=== PATIENT | male | born 1955 | race Caucasian/White ===

== ENCOUNTER 2023-03-19 06:30 | Day surgery (SDC) | payer OTHER ==
[2023-03-14 11:37] LABS: Absolute Lymphocytes (CBC) 1.1 K/uL (0.7-4.9); Hematocrit 42.8 % (39.6-49.0); Lymphocytes % 16.7 % (15.3-44.8); MCV 96.8 fL (80-100); MPV 7.9 fL (7.6-11.3); RBC Red Blood Cell Count 4.41 M/uL (4.33-5.43)
[2023-03-14 11:43] LABS: Protime INR 0.81
--- NOTE | 2023-03-14 12:07 | RAD REPORT ---
EXAM DESCRIPTION: Micah Alva And Brittany (2 Views)03/14/2023 11:28 am CLINICAL HISTORY: Preop for cardiac catheterization. Hypertension COMPARISON: None FINDINGS: The lungs appear clear of acute infiltrate. The heart is normal size IMPRESSION: No acute abnormalities displayed
[2023-03-14 12:36] LABS: Potassium 3.9 mEq/L (3.5-5.1)
--- NOTE | 2023-03-14 15:12 | EKG ---
Test Date: 2023-03-14 Test Time: 11:15:58 Drawer Upfitter: LYNDSAY MEASUREMENT RESULTS: Intervals: Rate: 76 ME: 166 QRSD: 98 QT: 424 QTc: 477 Reliance: P: 10 ME: 166 QRS: -12 T: 49 INTERPRETIVE STATEMENTS: Normal sinus rhythm Normal ECG No previous ECG available for comparison Electronically Signed On 03-14-23 15:11:27 CDT by Richard Salcido
[2023-03-19] MEDS ORDERED: LIDOCAINE 1% 20 ML MDV ONE (06:48)
[2023-03-19] MEDS ORDERED: HEPA 1000U/500MLS 2,000 UNIT/1,000 ML BAG IV ONE (06:48)
[2023-03-19] MEDS ORDERED: FENTANYL CITR 100 MCG/2 ML ONE (06:48)
[2023-03-19] MEDS ORDERED: MIDAZOLAM HCL 2 MG/2 ML INJ ONE (06:49)
[2023-03-19] MEDS ORDERED: ATROPINE SULF 1 MG/10 ML SYR IV ONE (06:49)
[2023-03-19] MEDS ORDERED: NA CHLORIDE 0.9% 500 ML ONE (07:00)
--- NOTE | 2023-03-19 09:55 | OP ---
Date of Procedure: 03/19/2023 Surgeon: IVONE FERMIN Procedure Performed: Bilateral carotid angiogram. Indication: Carotid stenosis by Doppler. Access: Right femoral artery 4-Mauritian closed with manual pressure. Complications: None. Bleeding: Less than 20 mL. Anesthesia: Total sedation time was 30 minutes. Used fentanyl and Versed. Description Of Procedure: After risks, benefits, and alternatives were explained, the patient agreed to procedure and signed informed consent. The patient was brought into the cardiac catheterization laboratory, prepped and draped in the usual sterile fashion. Then, I accessed the right femoral aviva ry using a micropuncture kit, ultrasound guidance and fluoroscopy, and placed a 4-Mauritian [place] she ath and took a 4-Mauritian 3DRC catheter into the aortic root and then I engaged the right common caroti d artery, took standard views and then the left common carotid and took standard views, and then cecilia dionna the catheter and sheath and manual pressure was used for closure with good hemostasis. Total amount of contrast use was 14 cc. Findings: 1.Right common carotid artery appears normal. In the distal portion, there was 50% stenosis, extend s into the right internal carotid artery. 2.Left common carotid artery distally is 50% to 60% and left internal carotid artery is 60% stenosed , the left external carotid artery has 50% stenosis ostially. Conclusion: Moderate bilateral carotid stenosis. Plan: Medical management. /GIACOMOL Voice ID: [id number] Report ID: [id number]
[2023-03-19 10:01] VITALS: TEMP 97.4
[2023-03-19 11:07] VITALS: BP 157/84; O2SAT 98
== END 2023-03-19 11:16 | disposition home or self-care (01) ==
LOC: CCL 06:30
PROVIDERS: ATTEND Internal Medicine
DX: I65.23 Occlusion and stenosis of bilateral carotid arteries (principal)
CPT/HCPCS: 93005; 85025; 80048; 36415; 85610; 82947; 85730; 71046; 36222; C1893; J2001; J2250; J3010; J7040; J0461

== ENCOUNTER 2025-02-22 14:15 | Emergency (ER) | payer OTHER ==
--- NOTE | 2025-02-22 15:56 | RAD REPORT ---
EXAMINATION: Ankle Right 3 View VIEWS: As above CLINICAL INDICATION: Male, 70 years old. hardware sticking out COMPARISON: No prior exam. IMPRESSION: Question age-indeterminate fracture at the base of the fifth metatarsal on the lateral view. Could co nsider dedicated right foot radiograph. Otherwise, no acute fracture seen. Status post distal tibial ORIF with threaded screws and medial plate and screw. Notable soft tissue s welling is present along the medial aspect of the distal tibial metaphysis. This is of uncertain etiology. Underlying vascular clips are present. The hardware appears intact. Peripheral vascular calcifications are noted. Moderate to advanced degenerative changes are present a t the ankle joint. Calcaneal spurs present.
--- NOTE | 2025-02-22 18:16 | RAD REPORT ---
EXAM: Foot Right 3 View HISTORY: PAIN COMPARISON: None FINDINGS: Bones: Lucency through the base of the fifth metatarsal likely reflects a remote, healed fracture. No acute fracture. Alignment:No significant malalignment. Degenerative changes:Advanced degenerative changes are present at the first MTP joint. Calcaneal spur s. Other: Surgical changes at the ankle. Peripheral vascular calcifications. IMPRESSION: No acute right foot fracture. Deformity at the fifth metatarsal likely reflecting a remote healed fra cture.
--- NOTE | 2025-02-22 18:34 | EDPHYS ---
Physician Documentation [facility] Name: Boris Najera Age: 70 yrs Sex: Male : 1955 Arrival Date: 02/22/2025 Time: 14:15 Bed 21 Private MD: ED Physician Lee Ann Rocha HPI: 02/22 17:58 This 70 yrs old Male presents to ER via Ambulatory with complaints of right ankle metal ci sticking out. 17:58 Patient is a 70-year-old male with PMH diabetes, hypertension, CVA, hyperlipidemia who ci presents with right ankle metallic foreign body sticking out of his ankle. Patient has a history of compound fracture with multiple ankle fractures 14 years ago. Reports he noticed the pain was taken out. Denies any pain, no recent trauma, no fever. Patient has been ambulatory with a steady gait.. Historical: - Allergies: 15:17 No Known Allergies; cm10 - PMHx: 15:17 diabetes mellitus; Hypertensive disorder; Cerebrovascular accident; cm10 Hypercholesterolemia; - Immunization history:: Adult Immunizations up to date. - Infectious Disease History:: Denies. - Social history:: Smoking status: Patient denies any tobacco usage or history of. ROS: 17:58 Constitutional: Negative for fever, chills, and weight loss, Cardiovascular: Negative ci for chest pain, palpitations, and edema, Respiratory: Negative for shortness of breath, cough, wheezing, and pleuritic chest pain, 17:58 MS/extremity: Positive for Foreign body, Exam: 17:58 Constitutional: This is a well developed, well nourished patient who is awake, alert, ci and in no acute distress. Head/Face: Normocephalic, atraumatic. Cardiovascular: Regular rate and rhythm with a normal S1 and S2. No gallops, murmurs, or rubs. Normal PMI, no JVD. No pulse deficits. Respiratory: Lungs have equal breath sounds bilaterally, clear to auscultation and percussion. No rales, rhonchi or wheezes noted. No increased work of breathing, no retractions or nasal flaring. Abdomen/GI: Soft, non-tender, with normal bowel sounds. No distension or tympany. No guarding or rebound. No evidence of tenderness throughout. 17:58 Musculoskeletal/extremity: Circulation is intact in all extremities. Pulses: are normal with no appreciated deficits, Compartment Syndrome exam of affected extremity: is normal. no pain, no numbness, no tingling, no sensation deficit, no palor, no weak pulses, DVT Exam: No signs of deep vein thrombosis. no pain, no swelling, no tenderness, negative Homans' sign noted on exam, no appreciated bluish discoloration, no erythema, no increased warmth, Right ankle swelling along medial malleolus. Patient does have a metallic pain sticking out. DP/PT 2+, sensation to light touch is intact. No tenderness to palpation.. Vital Signs: 15:15 BP 131 / 63; Pulse 85; Resp 18; Temp 98.8; Pulse Ox 99% on R/A; Weight 83.91 kg; Height cm10 5 ft. 10 in. ; Pain 0/10; 15:15 Body Mass Index 26.54 (83.91 kg, 177.8 cm) cm10 15:15 Pain Scale: Adult cm10 MDM: 15:29 Medical Screening Exam initiated ci 17:58 Differential Diagnosis Fracture, dislocation, sprain/strain, contusion. Data reviewed: ci vital signs, nurses notes. ED course: Orthopedic surgery consulted, Dr. Ashley will see in office. Radiology arrives for right foot x-ray, x-ray pending at this time.. 18:18 ED course: XR foot shows healed fx. ci 02/22 15:18 Order name: Ankle Right 3 View XRAY; Complete Time: 16:24 cm10 02/22 17:57 Interpretation: Abnormal: questionable fifth metatarsal fx, recs for foot XR. ci 02/22 16:25 Order name: Foot Right 3 View XRAY; Complete Time: 18:17 ci Administered Medications: No medications were administered Disposition Summary: 02/22/25 18:33 Discharge Ordered Notes: Location: Home ci Condition: Stable ci Diagnosis - Sprain of unspecified ligament of right ankle, initial encounter - Hardware ci Protrusion Discharge Instructions: - Discharge Summary Sheet ci - Ankle Sprain, [id number] ci Forms: - Medication Reconciliation Form ci - Antibiotic Education ci - Prescription Opioid Use ci - Patient Portal Instructions ci - Leadership Thank You Letter ci Signatures: Dispatcher [employer] Yasemin Dougherty RN RN cm10 Lee Ann Rocha ci Corrections: (The following items were deleted from the chart) 15:18 15:18 Ankle Right 3 View+RAD.RAD.BRZ ordered. EDMS EDMS
--- NOTE | 2025-02-22 18:34 | ER ---
Nurse's Notes [facility] Name: Boris Najera Age: 70 yrs Sex: Male : 1955 Arrival Date: 02/22/2025 Time: 14:15 Bed 21 Private MD: Diagnosis: Sprain of unspecified ligament of right ankle, initial encounter-Hardware Protrusion Presentation: 02/22 15:15 Chief complaint: Patient states: had hardware in right ankle from surgery 14 years ago cm10 and today pt noticed some hardware that was starting to stick out. Coronavirus screen: Client denies travel out of the [place] in the last 14 days. Ebola Screen: Patient denies travel to an Ebola-affected area in the 21 days before illness onset. Initial Sepsis Screen: Does the patient meet any 2 criteria? No. Patient's initial sepsis screen is negative. Does the patient have a suspected source of infection? No. Patient's initial sepsis screen is negative. Risk Assessment: Do you want to hurt yourself or someone else? Patient reports no desire to harm self or others. Onset of symptoms was February 22, 2025. 15:15 Method Of Arrival: Ambulatory cm10 15:15 Acuity: LEWIS 4 cm10 Triage Assessment: 15:17 General: Appears comfortable, Behavior is calm, cooperative. Pain: Denies pain. Neuro: cm10 No deficits noted. Level of Consciousness is awake, alert, obeys commands, Oriented to person, place, time, situation, Appropriate for age. Respiratory: No deficits noted. Airway is patent Respiratory effort is even, unlabored, Respiratory pattern is regular, symmetrical. Historical: - Allergies: 15:17 No Known Allergies; cm10 - PMHx: 15:17 diabetes mellitus; Hypertensive disorder; Cerebrovascular accident; cm10 Hypercholesterolemia; - Immunization history:: Adult Immunizations up to date. - Infectious Disease History:: Denies. - Social history:: Smoking status: Patient denies any tobacco usage or history of. Assessment: 18:45 Reassessment: At discharge pt requested to have films, informed pt that we can give him jl7 a CD to take to the radiologist, pt refused. Vital Signs: 15:15 BP 131 / 63; Pulse 85; Resp 18; Temp 98.8; Pulse Ox 99% on R/A; Weight 83.91 kg; Height cm10 5 ft. 10 in. ; Pain 0/10; 15:15 Body Mass Index 26.54 (83.91 kg, 177.8 cm) cm10 15:15 Pain Scale: Adult cm10 ED Course: 14:17 Patient arrived in ED. im 15:16 Triage completed. cm10 15:17 Arm band placed on right wrist. Patient placed in waiting room. cm10 15:29 Lee Ann Rocha is Attending Physician. ci 15:48 Ankle Right 3 View XRAY In Process Unspecified. EDMS 17:48 Foot Right 3 View XRAY In Process Unspecified. EDMS 18:45 Patient has correct armband on for positive identification. jl7 18:45 No provider procedures requiring assistance completed. Patient did not have IV access jl7 during this emergency room visit. Administered Medications: No medications were administered Medication: 18:45 VIS not applicable for this client. jl7 Outcome: 18:33 Discharge ordered by MD. ci 18:45 Discharged to home ambulatory, jl7 18:45 Condition: stable 18:45 Discharge instructions given to patient, Instructed on discharge instructions, follow up and referral plans. Demonstrated understanding of instructions, follow-up care, 19:27 Patient left the ED. jl7 Signatures: Dispatcher [employer] Baltazar Montalvo RN RN jl7 Bella Lyles Clarissa, RN RN 10 Lee Ann Rocha ci
[2025-02-22 19:35] VITALS: BP 131/63; TEMP 98.8; O2SAT 99
== END 2025-02-22 19:27 | disposition home or self-care (01) ==
LOC: ER 14:15
DX: S93.401A Sprain of unspecified ligament of right ankle, initial encounter (principal); Z98.890 Other specified postprocedural states
CPT/HCPCS: 99282

== ENCOUNTER 2025-08-21 16:04 | Observation (INO) | payer OTHER ==
[2025-08-21 16:41] LABS: Absolute Lymphocytes (CBC) 0.9 K/uL (0.7-4.9); Hematocrit 43.2 % (39.6-49.0); Hemoglobin 14.3 g/dL (13.6-17.9); MCH 34.6 pg (27.0-35.0); MCHC 33.2 g/dL (32.0-36.0); MCV 104.3 fL (80-100); MPV 7.8 fL (7.6-11.3); Nucleated RBC Absolute Count 0.0 (0-0); Nucleated Red Blood Cells % 0.0 % (0-0); RBC Red Blood Cell Count 4.14 M/uL (4.33-5.43); White Blood Count 10.90 thou/uL (4.3-10.9)
[2025-08-21 16:42] LABS: PT Prothrombin Time 9.6 SECONDS (10-13.0); Protime INR 0.85
[2025-08-21 16:53] LABS: ALT/SGPT 59.0 U/L (16-61); AST/SGOT 51.0 U/L (15-37); Albumin 3.2 g/dL (3.4-5.0); Albumin/Globulin Ratio 0.8 (1.1-1.8); Alkaline Phosphatase 77.0 U/L (45-117); Anion Gap 24.0 mEq/L (5.0-15.0); BUN Blood Urea Nitrogen 28.0 mg/dL (7-18); Bilirubin Indirect, Calculated 0.6 mg/dL (0.2-0.8); Globulin 3.8 g/dL (2.3-3.5); Glucose Level 156.0 mg/dL (74-106); Magnesium 2.1 mg/dL (1.6-2.4); NT PRO-BNP 5002.0 pg/mL (<125); Potassium 4.0 mEq/L (3.5-5.1)
[2025-08-21 16:54] LABS: Troponin High Sensitivity 65.1 pg/mL (<58.9)
[2025-08-21] MEDS ORDERED: NITROGLYCERIN 0.4 MG/TAB SL ONE ×2 (17:05→17:07)
[2025-08-21] MEDS ORDERED: ASPIRIN 81 MG CHEWABLE TABLET ONE (17:05)
--- NOTE | 2025-08-21 17:07 | ER ---
Nurse's Notes [facility] Name: Boris Najera Age: 70 yrs Sex: Male : 1955 Arrival Date: 08/21/2025 Time: 16:04 Bed [id number] Private MD: Diagnosis: Chest pain, acute kidney injury, NSTEMI Presentation: 08/21 16:28 Chief complaint: Patient states: reports having chest pain since 2200 last night. nh2 Coronavirus screen: At this time, the client does not indicate any symptoms associated with coronavirus-19. Ebola Screen: Patient denies travel to an Ebola-affected area in the 21 days before illness onset. No symptoms or risks identified at this time. Initial Sepsis Screen: Does the patient meet any 2 criteria? No. Patient's initial sepsis screen is negative. Does the patient have a suspected source of infection? No. Patient's initial sepsis screen is negative. Risk Assessment: Do you want to hurt yourself or someone else? Patient reports no desire to harm self or others. Onset of symptoms was August 20, 2025. 16:28 Method Of Arrival: Ambulatory [facility] 16:28 Acuity: LEWIS 3 nh2 Triage Assessment: 16:20 General: Appears distressed, uncomfortable, Behavior is cooperative, appropriate for nh2 age, anxious. Pain: Complains of pain in chest Pain does not radiate. Pain currently is 4 out of 10 on a pain scale. Quality of pain is described as sharp, Pain began 1 day ago. Is intermittent, Aggravated by increased activity. Neuro: Level of Consciousness is awake, alert, obeys commands, Oriented to person, place, time, situation, Appropriate for age Denies dizziness, headache. Cardiovascular: Denies chest pain, Patient's skin is warm and dry. Rhythm is sinus rhythm. Respiratory: Reports shortness of breath on exertion Airway is patent Trachea midline Respiratory effort is even, unlabored, Respiratory pattern is regular, symmetrical. GI: Abdomen is round non-distended, Bowel sounds present X 4 quads. Abd is soft and non tender X 4 quads. Reports indigestion, nausea, vomiting. : No signs and/or symptoms were reported regarding the genitourinary system. Denies burning with urination. Derm: Skin is intact, Skin is pink, warm \T\ dry. Musculoskeletal: Range of motion: intact in all extremities. Historical: - Allergies: 16:29 No Known Allergies; nh2 - PMHx: 16:29 Cerebrovascular accident; diabetes mellitus; Hypercholesterolemia; Hypertensive nh2 disorder; - PSHx: 16:29 Skin grafting; Carotid Surgery (en); nh2 - Immunization history:: Adult Immunizations unknown. - Infectious Disease History:: Denies. - Social history:: Smoking status: unknown. Screenin:32 [facility] ED Fall Risk Assessment (Adult) History of falling in the last 3 months, nh2 including since admission No falls in past 3 months (0 pts) Confusion or Disorientation No (0 pts) Intoxicated or Sedated No (0 pts) Impaired Gait No (0 pts) Mobility Assist Device Used No (0 pt) Altered Elimination No (0 pt) Score/Fall Risk Level 0 - 2 = Low Risk Oriented to surroundings, Maintained a safe environment, Educated pt \T\ family on fall prevention, incl call for assistance when getting out of bed, Assessed \T\ reinforced patient's understanding of fall precautions. Abuse screen: Denies threats or abuse. Denies injuries from another. Nutritional screening: No deficits noted. Tuberculosis screening: No symptoms or risk factors identified. Assessment: 16:32 Reassessment: see triage. nh2 17:30 Reassessment: Patient and/or family updated on plan of care and expected duration. Pain nh2 level reassessed. Patient is alert, oriented x 3, equal unlabored respirations, skin warm/dry/pink. Patient states feeling better. Vital Signs: 16:28 BP 185 / 71; Pulse 90; Resp 19; Temp 98.6(O); Pulse Ox 100% ; Weight 82.1 kg; Height 5 nh2 ft. 10 in. ; 16:58 BP 182 / 70; Pulse 82; Resp 18; Pulse Ox 100% on R/A; nh2 17:30 BP 168 / 66; Pulse 78; Resp 19; Temp 98.5(O); Pulse Ox 100% on NC; nh2 18:00 BP 150 / 62; Pulse 78; Resp 18; Pulse Ox 100% on NC; nh2 16:28 Body Mass Index 25.97 (82.10 kg, 177.8 cm) nh2 ED Course: 16:10 Patient arrived in ED. sj2 16:12 Anant Menjivar MD is Attending Physician. sp3 16:20 Arm band placed on right wrist. nh2 16:23 Nikki Donis, RN is Primary Nurse. kj2 16:26 Initial lab(s) drawn, by me, sent to lab. Inserted saline lock: 20 gauge in right rk3 antecubital area, using aseptic technique. Blood collected. Flushed with 10 mL NS. 16:26 EKG done, by ED staff, reviewed by Nikki Donis RN. rk3 16:29 Triage completed. nh2 16:32 Patient has correct armband on for positive identification. Bed in low position. Call nh2 light in reach. Side rails up X 1. Provided Education on: using call light for assistance. 17:03 XRAY Chest (1 view) In Process Unspecified. EDMS 17:05 Stacey Jenkins MD is Hospitalizing Provider. sp3 17:14 Oxygen administration via nasal cannula \T\ 2L/min. nh2 18:43 No provider procedures requiring assistance completed. Patient admitted, IV remains in nh2 place. Administered Medications: 17:14 Drug: Nitroglycerin Sublingual 0.4 mg Sublingual once Route: Sublingual; nh2 17:52 Follow up: Response: No adverse reaction; Pain is decreased nh2 17:14 Drug: Aspirin PO Chewable Tablet 324 mg PO once; 81 mg tablets x 4 Route: PO; nh2 17:52 Follow up: Response: No adverse reaction nh2 17:45 Drug: NS 0.9% IV 1000 ml IV at 75 ml/hr continuous Route: IV; Rate: 75 ml/hr; Site: nh2 right antecubital; 18:42 Follow up: IV Status: Infusion continued upon admission nh2 Medication: 16:32 VIS not applicable for this client. nh2 Outcome: 17:06 Decision to Hospitalize by Provider. sp3 18:43 Admitted to Med/surg accompanied by tech, via wheelchair, room 217, with oxygen, with nh2 chart, 18:43 Condition: stable 18:43 Instructed on the need for admit, Demonstrated understanding of instructions, follow-up care, medications, 18:44 Patient left the ED. nh2 Signatures: Dispatcher [employer] EDMS Anant Menjivar MD MD sp3 Nikki Donis, EMILEE RN kj2 Rc Barragan Jr, RN RN nh2 Harini Thibodeaux 2 Marko El rk3 Corrections: (The following items were deleted from the chart) 17:55 17:54 BP 168 / 66; Pulse 78bpm; Resp 19bpm; Pulse Ox 100% Nasal Cannula; Temp 98.5F nh2 Oral; nh2 18:43 17:30 BP 150 / 62; Pulse 78bpm; Resp 18bpm; Pulse Ox 100% Nasal Cannula; nh2 nh2
--- NOTE | 2025-08-21 17:07 | EDPHYS ---
Physician Documentation [facility] Name: Boris Najera Age: 70 yrs Sex: Male : 1955 Arrival Date: 08/21/2025 Time: 16:04 Bed [id number] Private MD: ED Physician Anant Menjivar HPI: 08/21 16:35 This 70 yrs old Male presents to ER via Ambulatory with complaints of BURNING FEELING sp3 IN CHEST. 16:35 70-year-old male with history of CVA, diabetes, hyperlipidemia, hypertension presents sp3 with chest pain that started at 10 AM yesterday. Patient states has been waxing and waning but then he spoke to his friend who is an sales research analyst who advised him to come in for evaluation. Patient's pain is ongoing but mild in nature. He denies any other symptoms including headache, neck pain, shortness of breath, back pain, left arm pain, abdominal pain, nausea, vomit, diarrhea, syncope, near syncope, fever, known sick contacts, prolonged immobilization, known travel history, or any other signs or symptoms on ROS at this time.. Historical: - Allergies: 16:29 No Known Allergies; nh2 - PMHx: 16:29 Cerebrovascular accident; diabetes mellitus; Hypercholesterolemia; Hypertensive nh2 disorder; - PSHx: 16:29 Skin grafting; Carotid Surgery (en); nh2 - Immunization history:: Adult Immunizations unknown. - Infectious Disease History:: Denies. - Social history:: Smoking status: unknown. ROS: 16:36 Constitutional: Negative for fever, chills, and weight loss, Eyes: Negative for injury, sp3 pain, redness, and discharge, ENT: Negative for injury, pain, and discharge, Neck: Negative for injury, pain, and swelling, Respiratory: Negative for shortness of breath, cough, wheezing, and pleuritic chest pain, Abdomen/GI: Negative for abdominal pain, nausea, vomiting, diarrhea, and constipation, Back: Negative for injury and pain, MS/Extremity: Negative for injury and deformity, Skin: Negative for injury, rash, and discoloration, Neuro: Negative for headache, weakness, numbness, tingling, and seizure, Psych: Negative for depression, anxiety, suicide ideation, homicidal ideation, and hallucinations, Allergy/Immunology: Negative for hives, rash, and allergies, Endocrine: Negative for neck swelling, polydipsia, polyuria, polyphagia, and marked weight changes, Hematologic/Lymphatic: Negative for swollen nodes, abnormal bleeding, and unusual bruising, 16:36 All other systems are negative, Exam: 16:37 Constitutional: This is a well developed, well nourished patient who is awake, alert, sp3 and in no acute distress. Head/Face: Normocephalic, atraumatic. Eyes: Pupils equal round and reactive to light, extra-ocular motions intact. Lids and lashes normal. Conjunctiva and sclera are non-icteric and not injected. Cornea within normal limits. Periorbital areas with no swelling, redness, or edema. Neck: Trachea midline, no thyromegaly or masses palpated, and no cervical lymphadenopathy. Supple, full range of motion without nuchal rigidity, or vertebral point tenderness. No Meningismus. Chest/axilla: Normal chest wall appearance and motion. Nontender with no deformity. No lesions are appreciated. Cardiovascular: Regular rate and rhythm with a normal S1 and S2. No gallops, murmurs, or rubs. Normal PMI, no JVD. No pulse deficits. Respiratory: Lungs have equal breath sounds bilaterally, clear to auscultation and percussion. No rales, rhonchi or wheezes noted. No increased work of breathing, no retractions or nasal flaring. Abdomen/GI: Soft, non-tender, with normal bowel sounds. No distension or tympany. No guarding or rebound. No evidence of tenderness throughout. Back: No spinal tenderness. No costovertebral tenderness. Full range of motion. Skin: Warm, dry with normal turgor. Normal color with no rashes, no lesions, and no evidence of cellulitis. MS/ Extremity: Pulses equal, no cyanosis. Neurovascular intact. Full, normal range of motion. Neuro: Awake and alert, GCS 15, oriented to person, place, time, and situation. Cranial nerves II-XII grossly intact. Motor strength 5/5 in all extremities. Sensory grossly intact. Cerebellar exam normal. Normal gait. Psych: Awake, alert, with orientation to person, place and time. Behavior, mood, and affect are within normal limits. 16:55 ECG was reviewed by the Attending Physician. EKG demonstrates normal sinus rhythm at 83 sp3 bpm with first-degree AV block with TN interval 230 ms, normal QRS, leftward axis and nonspecific diffuse ST/T changes without evidence of acute ischemia. Vital Signs: 16:28 BP 185 / 71; Pulse 90; Resp 19; Temp 98.6(O); Pulse Ox 100% ; Weight 82.1 kg; Height 5 nh2 ft. 10 in. ; 16:58 BP 182 / 70; Pulse 82; Resp 18; Pulse Ox 100% on R/A; nh2 17:30 BP 168 / 66; Pulse 78; Resp 19; Temp 98.5(O); Pulse Ox 100% on NC; nh2 18:00 BP 150 / 62; Pulse 78; Resp 18; Pulse Ox 100% on NC; nh2 16:28 Body Mass Index 25.97 (82.10 kg, 177.8 cm) nh2 MDM: 16:12 Medical Screening Exam initiated sp3 16:37 Data reviewed: vital signs, nurses notes, old medical records, lab test result(s), EKG, sp3 radiologic studies. ED course: 70-year-old male with PMH above now with chest pain. Patient sees Dr. Marc as an outpatient. Differential diagnosis includes acute coronary syndrome, GERD, esophagitis, gastritis, musculoskeletal, among others. Workup will include EKG, chest x-ray and general labs including troponin. Disposition pending workup and patient course with probable 23-hour observation and cardiology consultation.. 17:05 ED course: Creatinine at 2. Patient has known kidney disease. BNP at 5000 and troponin sp3 mildly bumped at 65 although in the setting of decreased kidney function. Will place patient in observation for chest pain and pulmonary edema with consultation from cardiology and serial cardiac markers.. 08/21 16:12 Order name: Basic Metabolic Panel; Complete Time: 16:55 sp3 08/21 16:12 Order name: CBC with Diff; Complete Time: 16:55 sp3 08/21 16:12 Order name: LFT's; Complete Time: 16:55 sp3 08/21 16:12 Order name: Magnesium; Complete Time: 16:55 sp3 08/21 16:12 Order name: NT PRO-BNP; Complete Time: 16:55 sp3 08/21 16:12 Order name: PT-INR; Complete Time: 16:55 sp3 08/21 16:12 Order name: Troponin HS; Complete Time: 16:55 sp3 08/21 17:33 Order name: CBC with Automated Diff EDMS 08/21 17:33 Order name: CBC with Automated Diff EDMS 08/21 17:33 Order name: CBC with Automated Diff EDMS 08/21 17:33 Order name: CBC with Automated Diff EDMS 08/21 17:33 Order name: Comprehensive Metabolic Panel EDMS 08/21 17:33 Order name: Comprehensive Metabolic Panel EDMS 08/21 17:33 Order name: Comprehensive Metabolic Panel EDMS 08/21 17:33 Order name: Comprehensive Metabolic Panel EDMS 08/21 17:33 Order name: Troponin High Sensitivity EDMS 08/21 17:33 Order name: Troponin High Sensitivity EDMS 08/21 17:33 Order name: Troponin High Sensitivity EDMS 08/21 16:12 Order name: XRAY Chest (1 view); Complete Time: 18:07 sp3 08/21 16:12 Order name: Cardiac monitoring; Complete Time: 16:27 sp3 08/21 16:12 Order name: EKG - Nurse/Tech; Complete Time: 16:27 3 08/21 16:12 Order name: IV Saline Lock; Complete Time: 16:27 sp3 08/21 16:12 Order name: Labs collected and sent; Complete Time: 16:27 sp3 08/21 16:12 Order name: O2 Per Protocol; Complete Time: 16:27 sp3 08/21 16:12 Order name: O2 Sat Monitoring; Complete Time: 16:27 3 Administered Medications: 17:14 Drug: Nitroglycerin Sublingual 0.4 mg Sublingual once Route: Sublingual; nh2 17:52 Follow up: Response: No adverse reaction; Pain is decreased nh2 17:14 Drug: Aspirin PO Chewable Tablet 324 mg PO once; 81 mg tablets x 4 Route: PO; nh2 17:52 Follow up: Response: No adverse reaction nh2 17:45 Drug: NS 0.9% IV 1000 ml IV at 75 ml/hr continuous Route: IV; Rate: 75 ml/hr; Site: nh2 right antecubital; 18:42 Follow up: IV Status: Infusion continued upon admission nh2 Disposition Summary: 08/21/25 17:06 Hospitalization Ordered Notes: Hospitalization Status: Inpatient Admission sp3 Provider: Stacey Jenkins sp3 Location: Telemetry/MedSurg (Inpatient) sp3 Condition: Stable sp3 Problem: an acute exacerbation sp3 Symptoms: have worsened sp3 Bed/Room Type: Standard sp3 Room Assignment: 217(08/21/25 17:34) em1 Diagnosis - Chest pain, acute kidney injury, NSTEMI sp3 Forms: - Medication Reconciliation Form sp3 - SBAR form sp3 - Leadership Thank You Letter sp3 Signatures: Dispatcher [employer] EDMS Prasanna Lopez em1 Can Perla, KITCHEN SUPERVISOR-C KITCHEN SUPERVISOR-Cla1 Anant Menjivar MD MD sp3 Rc Barragan Jr, RN RN nh2 Corrections: (The following items were deleted from the chart) 16:13 16:13 BASIC METABOLIC PANEL+C.LAB.BRZ ordered. EDMS EDMS 16:13 16:13 CBC+H.LAB.BRZ ordered. EDMS EDMS 16:13 16:13 HEPATIC FUNCTION+C.LAB.BRZ ordered. EDMS EDMS 16:13 16:13 MAGNESIUM+C.LAB.BRZ ordered. EDMS EDMS 16:13 16:13 PROBNP+C.LAB.BRZ ordered. EDMS EDMS 16:13 16:13 PROTIME (+INR)+COAG.LAB.BRZ ordered. EDMS EDMS 16:13 16:13 Troponin High Sensitivity+C.LAB.BRZ ordered. EDMS EDMS 16:13 16:13 Chest Single View+RAD.RAD.BRZ ordered. EDMS EDMS 17:34 17:06 sp3 em1
[2025-08-21] MEDS ORDERED: MAGNES/ALUMIN/SIMET 30ML UCUP PO PRN (17:27)
[2025-08-21] MEDS ORDERED: ONDANSETRON 4 MG/2 ML VIAL IV PRN (17:27)
[2025-08-21] MEDS ORDERED: MORPHINE 2 MG/ML SYR IV PRN (17:27)
[2025-08-21] MEDS ORDERED: SODIUM CHLORIDE 0.9% 10ML INJ IV PRN (17:27)
[2025-08-21] MEDS ORDERED: ACETAMINOPHEN 325 MG TABLET PO PRN (17:27)
[2025-08-21] MEDS ORDERED: NA CHLORIDE 0.9% 1,000 ML ONE (17:28)
--- NOTE | 2025-08-21 17:37 | P.HP ---
Certification for Inpatient Patient admitted to: Observation With expected LOS: <2 Midnights Patient will require the following post-hospital care: None Practitioner: I am a practitioner with admitting privileges, knowledge of patient current condition, hospital course, and medical plan of care. Services: Services provided to patient in accordance with Admission requirements found in Title 42 Section 412.3 of the Code of Federal Regulations <Can Perla - Last Filed: 08/21/25 17:33> Patient History Date of Service: 08/21/25 Reason for admission: Chest pain History of Present Illness: 70-year-old male with history of CKD 4, ndn-hiiskty-ienngxfeg diabetes, hypertension, hyperlipidemia, previous CVA presents emergency department chief complaint of chest pain. Patient reports this pain began around 2200 last night described as tightness, substernal and nonradiating. He did have an episode of vomiting earlier today. Patient was evaluated here in the emergency department his labs are significant for mildly elevated high sensitive troponin of 65.1, BNP of 5002, creatinine of 2.38, bicarb 17 sodium 134 chloride 97. Patient's baseline renal function appears to be around 2.5 from chart review. EKG without STEMI criteria present, pain has improved at this time. Patient reports around 1 month ago he had a carotid surgery on his right carotid at [facility], he believes that before he had the procedure he had a recent coronary angiogram without intervention but he cannot be totally sure. He thinks he had stress test also around 3 months ago. Patient was admitted to the hospital and observation on continuous telemetry, serial troponins with cardiology consultation. Will also try PPI/Maalox for possible GI symptoms. - Past Medical/Surgical History -: CKD 4 -: CVA -: Carotid stenosis -: Hypertension -: Hyperlipidemia -: Bww-swtozod-yzwshplpz diabetes -: Carotid surgery on right carotid Psychosocial/ Personal History: Lives at home with family - Social History Alcohol use: No CD- Drugs: No Caffeine use: Yes Place of Residence: Home <Can Perla - Last Filed: 08/21/25 17:33> Date of Service: 08/29/25 - Family History Father -: Cancer Notes: Lung and prostate cancer Mother -: Heart disease <Stacey Jenkins - Last Filed: 08/29/25 06:50> Allergies No Known Allergies Allergy (Verified 04/26/25 13:36) Review of Systems 10-point ROS is otherwise unremarkable Cardiovascular: Chest Pain <Can Perla - Last Filed: 08/21/25 17:33> Physical Examination - Physical Exam General: Alert, In no apparent distress, Oriented x3 HEENT: Atraumatic, PERRLA, EOMI Neck: Supple, 2+ carotid pulse no bruit, No LAD Respiratory: Clear to auscultation bilaterally, Normal air movement Cardiovascular: Regular rate/rhythm, Normal S1 S2 Gastrointestinal: Normal bowel sounds, No tenderness Musculoskeletal: No tenderness Integumentary: No rashes Neurological: Normal speech, Normal affect - Studies Laboratory Data (last 24 hrs) 08/21/25 08/21/25 08/21/25 16:24 16:24 16:24 WBC 10.90 Hgb 14.3 Hct 43.2 Plt Count 300 PT 9.6 L INR 0.85 Sodium 134 L Potassium 4.0 BUN 28 H Creatinine 2.38 H Glucose 156 H Magnesium 2.1 Total Bilirubin 0.8 AST 51 H ALT 59 Alkaline Phosphatase 77 <Can Perla - Last Filed: 08/21/25 17:33> Assessment and Plan - Plan Assessment: Chest pain rule out ACS Nausea/vomiting CKD 4 Hypertension Hyperlipidemia Diabetes mellitus type 0qiz-mzgohjw-erqxhzlow Plan: Chest pain rule out ACS Cardiology consultation Trend troponins and monitor on telemetry Continue aspirin, Plavix, statin If next troponin is significantly elevated we will place on heparin drip Patient believes that he has had both a stress test and a coronary angiogram within the last year without intervention but these records are not available for review. Nausea/vomiting Trial PPI, Maalox as needed CKD 4 Renal function stable with bicarb down to 17 Reports eating 1 meal daily, was unable to eat yesterday given that he was not feeling well Had episode of vomiting today Does not appear grossly overloaded Will give gentle fluids overnight and recheck chemistry in the morning Nephrology consulted Hypertension Hyperlipidemia Continue home medications Diabetes mellitus type 3smk-dewtzrp-hwjdwdzhy ACHS Accu-Chek, sliding insulin DVT PPX: Heparin subcu Code status: Full code Discharge Plan: Home Plan to discharge in: 24 Hours - Advance Directives Does patient have a Living Will: No Does patient have a Durable POA for Healthcare: No - Code Status/Comfort Care Code Status Assessed: Yes (Full code) Critical Care: No Time Spent Managing Pts Care (In Minutes): 70 <Can Perla - Last Filed: 08/21/25 17:33> Physician Review: Patient Assessed, Agree with Above Assessment and Plan <Stacey Jenkins - Last Filed: 08/29/25 06:50>
[2025-08-21] MEDS: NA CHLORIDE 0.9% 1,000 ML IV SCH (18:00)
--- NOTE | 2025-08-21 18:03 | RAD REPORT ---
EXAMINATION: ONE VIEW CHEST XR CLINICAL INDICATION: Male, 70 years old.,CHEST PAIN TECHNIQUE: Frontal chest projection is submitted. Examination is limited by patient positioning and t echnique. COMPARISON: 04/26/2025 FINDINGS: The lungs are well inflated and clear. No pneumothorax or sizable effusion. The heart is normal in s ize. Mediastinal contours are unremarkable. IMPRESSION: No acute intrathoracic abnormalities.
[2025-08-21] MEDS: METOPROLOL TAR 25 MG TAB PO ONE (18:45)
[2025-08-21] MEDS: METOPROLOL TAR 25 MG TAB ONE (18:46)
[2025-08-21 19:59] VITALS: BMI 25.3
[2025-08-21] MEDS: PANTOPRAZOLE 40 MG INJ IVP SCH (20:03)
[2025-08-21] MEDS: HEPARIN 5000 UNIT/ML 1 ML VIAL SQ SCH (20:03)
[2025-08-21] MEDS: INSULIN REGULAR (HUMAN) 100 UNIT/ML SQ SCH (20:04)
[2025-08-21] MEDS: ATORVASTATIN 40 MG TAB PO SCH (20:04)
[2025-08-22 04:36] VITALS: O2SAT 97
[2025-08-22 05:36] LABS: ALT/SGPT 43.0 U/L (16-61); AST/SGOT 38.0 U/L (15-37); Albumin 2.9 g/dL (3.4-5.0); Albumin/Globulin Ratio 0.9 (1.1-1.8); Alkaline Phosphatase 65.0 U/L (45-117); Anion Gap 17.5 mEq/L (5.0-15.0); BUN Blood Urea Nitrogen 30.0 mg/dL (7-18); Globulin 3.4 g/dL (2.3-3.5); Glucose Level 124.0 mg/dL (74-106); Potassium 4.5 mEq/L (3.5-5.1); Troponin High Sensitivity 57.2 pg/mL (<58.9)
[2025-08-22 05:46] LABS: Absolute Lymphocytes (CBC) 1.2 K/uL (0.7-4.9); Hematocrit 38.3 % (39.6-49.0); Hemoglobin 12.7 g/dL (13.6-17.9); MCH 34.4 pg (27.0-35.0); MCHC 33.1 g/dL (32.0-36.0); MCV 103.9 fL (80-100); MPV 7.9 fL (7.6-11.3); Nucleated RBC Absolute Count 0.0 (0-0); Nucleated Red Blood Cells % 0.0 % (0-0); RBC Red Blood Cell Count 3.69 M/uL (4.33-5.43); White Blood Count 8.00 thou/uL (4.3-10.9)
[2025-08-22] MEDS: METOPROLOL TAR 25 MG TAB PO SCH (05:46)
[2025-08-22] MEDS: CLOPIDOGREL 75 MG TABLET PO SCH (08:09)
[2025-08-22] MEDS: ASPIRIN EC 81 MG TAB PO SCH (08:09)
[2025-08-22] MEDS: SUCRALFATE 1GM/10ML UCUP PO ONE (08:47)
--- NOTE | 2025-08-22 08:51 | P.CNS ---
Date of Consult: 08/22/25 Reason for Consult: CKD IV Requesting Physician: Zita Newton Chief Complaint: Chest pain History of Present Illness: 70-year-old male with history of CKD 4, nsm-lyvdyrt-bcpdekxgs diabetes, hypertension, hyperlipidemia, previous CVA presents emergency department chief complaint of chest pain. Patient reports this pain began around 2200 last night described as tightness, substernal and nonradiating. He did have an episode of vomiting earlier today. Patient was evaluated here in the emergency department his labs are significant for mildly elevated high sensitive troponin of 65.1, BNP of 5002, creatinine of 2.38, bicarb 17 sodium 134 chloride 97. Patient's baseline renal function appears to be around 2.5 from chart review. EKG without STEMI criteria present, pain has improved at this time. Patient reports around 1 month ago he had a carotid surgery on his right carotid at [facility], he believes that before he had the procedure he had a recent coronary angiogram without intervention but he cannot be totally sure. He thinks he had stress test also around 3 months ago. Patient was admitted to the hospital and observation on continuous telemetry, serial troponins with cardiology consultation. Will also try PPI/Maalox for possible GI symptoms. 08/21 16:35 This 70 yrs old Male presents to ER via Ambulatory with complaints of BURNING FEELING sp3 IN CHEST. 16:35 70-year-old male with history of CVA, diabetes, hyperlipidemia, hypertension presents sp3 with chest pain that started at 10 AM yesterday. Patient states has been waxing and waning but then he spoke to his friend who is an food service technician who advised him to come in for evaluation. Patient's pain is ongoing but mild in nature. He denies any other symptoms including headache, neck pain, shortness of breath, back pain, left arm pain, abdominal pain, nausea, vomit, diarrhea, syncope, near syncope, fever, known sick contacts, prolonged immobilization, known travel history, or any other signs or symptoms on ROS at this time.. Allergies No Known Allergies Allergy (Verified 04/26/25 13:36) Home medications list reviewed: Yes Home Medications: Acetaminophen [Tylenol Extra Strength] 1,000 mg PO BIDP PRN 08/22/25 Amlodipine [Norvasc*] 5 mg PO DAILY 08/22/25 Atorvastatin Calcium [Lipitor] 40 mg PO BEDTIME 08/22/25 Clopidogrel Bisulfate [Plavix*] 75 mg PO DAILY 08/22/25 Dapagliflozin Propanediol [Farxiga] 5 mg PO DAILY 08/22/25 Finasteride [Proscar*] 5 mg PO DAILY 08/22/25 Gabapentin 300 mg PO BEDTIME 08/22/25 Irbesartan 75 mg PO DAILY 08/22/25 Metoprolol Tartrate [Lopressor*] 25 mg PO BID 08/22/25 Tramadol HCl [Ultram] 50 mg PO BID 08/22/25 - Past Medical/Surgical History Diabetic: Yes -: CKD 4 (Dr. Ortiz/ Mckenna) -: CVA -: Carotid stenosis -: Hypertension -: Hyperlipidemia -: Xoe-rzkjwdn-bwplteuzg diabetes -: Carotid surgery on right carotid Psychosocial/ Personal History: Lives at home with family - Family History Father Medical History: Cancer Notes: Lung and prostate cancer Mother Medical History: Heart disease - Social History Smoking Status: Unknown if ever smoked Alcohol use: Yes CD- Drugs: No Caffeine use: No Place of Residence: Home Review of Systems 10-point ROS is otherwise unremarkable Cardiovascular: Chest Pain Physical Examination Temp Pulse Resp BP Pulse Ox 98.6 F 81 16 158/71 H 99 08/22/25 08:00 08/22/25 08:00 08/22/25 08:00 08/22/25 08:00 08/22/25 08:00 General: In no apparent distress, Oriented x3, Cooperative HEENT: Atraumatic Neck: Supple Respiratory: Clear to auscultation bilaterally, Normal air movement Cardiovascular: No edema, Regular rate/rhythm Gastrointestinal: Soft and benign, Non-distended Musculoskeletal: No clubbing, No contractures Integumentary: No rashes, No cyanosis Neurological: Normal speech Laboratory Data (last 24 hrs) 08/21/25 08/21/25 08/21/25 16:24 16:24 16:24 WBC 10.90 Hgb 14.3 Hct 43.2 Plt Count 300 PT 9.6 L INR 0.85 Sodium 134 L Potassium 4.0 BUN 28 H Creatinine 2.38 H Glucose 156 H Magnesium 2.1 Total Bilirubin 0.8 AST 51 H ALT 59 Alkaline Phosphatase 77 Imagings Data: EXAMINATION: ONE VIEW CHEST XR CLINICAL INDICATION: Male, 70 years old.,CHEST PAIN TECHNIQUE: Frontal chest projection is submitted. Examination is limited by patient positioning and technique. COMPARISON: 04/26/2025 FINDINGS: The lungs are well inflated and clear. No pneumothorax or sizable effusion. The heart is normal in size. Mediastinal contours are unremarkable. IMPRESSION: No acute intrathoracic abnormalities. Conclusions/Impression: CKD IV -No NSAIDs Hyponatremia -Improved Acute AG Metabolic Acidosis -Improved HTN with CKD -Continue Metoprolol DM II with CKD -RISS Anemia in chronic illness Macrocytosis -Monitor H&H Hospitalist and ER notes reviewed Case reviewed with the hospitalist team Thank you kindly for the consultation
--- NOTE | 2025-08-22 09:32 | P.PN ---
Date of Service: 08/22/25 Subjective: No acute events overnight Reports an episode of burning/chest pain after eating this morning Will trial Carafate Troponin negative x 3 ROS: 10 point ROS as noted above, otherwise negative Physical exam GEN: Alert, oriented, NAD HEENT: Normal conjunctiva, sclera anicteric CV: Regular rate and rhythm, no edema Pulm: Nonlabored respirations on room air ABD: Soft, nontender, nondistended MSK: No joint tenderness Integumentary: No rashes Neuro: Normal speech, normal affect Vitals reviewed Assessment: Chest pain rule out ACS Nausea/vomiting CKD 4 Hypertension Hyperlipidemia Diabetes mellitus type 5hfx-thuqzcq-mycrhpbit Plan: Chest pain rule out ACS Cardiology consultation Troponins negative x 3 Continue aspirin, Plavix, statin Patient believes that he has had both a stress test and a coronary angiogram within the last year without intervention but these records are not available for review. Nausea/vomiting Trial PPI, Maalox as needed Trial Carafate this morning CKD 4 Renal function stable with bicarb down to 17 Bicarb improved, renal function stable DC IV fluids Reports eating 1 meal daily, was unable to eat yesterday given that he was not feeling well Had episode of vomiting prior to admission Does not appear grossly overloaded Monitor chemistry daily Nephrology consulted Hypertension Hyperlipidemia Continue home medications Diabetes mellitus type 4noa-zkuezhy-fteyolzzs ACHS Accu-Chek, sliding insulin DVT PPX: Heparin subcu Code status: Full code Discharge Plan: Home Plan to discharge in: 24 Hours Time Spent Managing Pts Care (In Minutes): 35 <Can Perla - Last Filed: 08/22/25 09:30> Patient was seen and examined. Events of the last 24 hours have been noted. Spoke with with [facility] regarding patient's clinical picture after evaluating and examining the patient independently. I performed a substantial part of the MDM during this patient's care today. I personally made or approved the documented management plan and acknowledge its risk of complications. I agree with the findings and documentation provided in the [facility]'s notes. <Zita Newton - Last Filed: 08/29/25 00:41>
--- NOTE | 2025-08-22 10:43 | P.DS ---
Admission Date: 08/21/25 Discharge Date: 08/22/25 Reason for Admission: Chest pain Brief History of Present Illness: 70-year-old male with history of CKD 4, dtt-nqsdobw-vhxjkfivz diabetes, hypertension, hyperlipidemia, previous CVA presents emergency department chief complaint of chest pain. Patient reports this pain began around 2200 last night described as tightness, substernal and nonradiating. He did have an episode of vomiting earlier today. Patient was evaluated here in the emergency department his labs are significant for mildly elevated high sensitive troponin of 65.1, BNP of 5002, creatinine of 2.38, bicarb 17 sodium 134 chloride 97. Patient's baseline renal function appears to be around 2.5 from chart review. EKG without STEMI criteria present, pain has improved at this time. Patient reports around 1 month ago he had a carotid surgery on his right carotid at [facility], he believes that before he had the procedure he had a recent coronary angiogram without intervention but he cannot be totally sure. He thinks he had stress test also around 3 months ago. Patient was admitted to the hospital and observation on continuous telemetry, serial troponins with cardiology consultation. Will also try PPI/Maalox for possible GI symptoms. Hospital Course: Assessment: Chest pain rule out ACS Nausea/vomiting CKD 4 Hypertension Hyperlipidemia Diabetes mellitus type [id number] Patient was admitted to hospital for chest pain. Initial high sensitive troponin was mildly elevated at 65.1, it trended down after this to 57.2 on subsequent rechecks. Patient remained chest pain-free although he did have an episode of burning pain this morning after eating which was resolved with oral Carafate liquid. It is believed that some of the patient's symptoms are likely related to GERD, he was advised to take [id number] Prilosec for 2 at least 2 weeks in addition to dietary changes recommended for GERD as seen in discharge recommendations. Renal function stable, troponin downtrending and patient is feeling much better. He is stable for discharge and outpatient follow-up with his PCP, nephrology and cardiology outpatient. If he has persistent GERD symptoms also recommend follow-up with GI. <Can Perla - Last Filed: 08/22/25 10:43> Admission Date: 08/21/25 Discharge Date: 08/22/25 Hospital Course: Patient was seen and examined. Events of the last 24 hours have been noted. Spoke with with [facility]Z regarding patient's clinical picture after evaluating and examining the patient independently. I performed a substantial part of the MDM during this patient's care today. I personally made or approved the documented management plan and acknowledge its risk of complications. I agree with the findings and documentation provided in the LIZ's notes. <Zita Newton - Last Filed: 08/29/25 00:43> Disposition: ROUTINE DISCHARGE Discharge Condition: GOOD Vital Signs/Physical Exam: Temp Pulse Resp BP Pulse Ox 98.6 F 81 16 158/71 H 99 08/22/25 08:00 08/22/25 08:00 08/22/25 08:00 08/22/25 08:00 08/22/25 08:00 General: Alert, In no apparent distress, Oriented x3 HEENT: Atraumatic, PERRLA Neck: Supple, JVD not distended Respiratory: Clear to auscultation bilaterally, Normal air movement Cardiovascular: Regular rate/rhythm, Normal S1 S2 Gastrointestinal: Normal bowel sounds, No tenderness Musculoskeletal: No tenderness Integumentary: No rashes Neurological: Normal speech, Normal affect Laboratory Data at Discharge: WBC 8.00 thou/uL (4.3-10.9) 08/22/25 04:42 Hgb 12.7 g/dL (13.6-17.9) L D 08/22/25 04:42 Hct 38.3 % (39.6-49.0) L 08/22/25 04:42 Plt Count 243 thou/uL (152-406) 08/22/25 04:42 PT 9.6 SECONDS (10-13.0) L 08/21/25 16:24 INR 0.85 08/21/25 16:24 Sodium 136 mEq/L (136-145) 08/22/25 04:42 Potassium 4.5 mEq/L (3.5-5.1) 08/22/25 04:42 BUN 30 mg/dL (7-18) H 08/22/25 04:42 Creatinine 2.38 mg/dL (0.70-1.30) H 08/22/25 04:42 Glucose 124 mg/dL (74-106) H 08/22/25 04:42 Magnesium 2.1 mg/dL (1.6-2.4) 08/21/25 16:24 Total Bilirubin 0.5 mg/dL (0.2-1.0) 08/22/25 04:42 AST 38 U/L (15-37) H 08/22/25 04:42 ALT 43 U/L (16-61) 08/22/25 04:42 Alkaline Phosphatase 65 U/L (45-117) 08/22/25 04:42 <Can Perla - Last Filed: 08/22/25 10:43> Vital Signs/Physical Exam: Temp Pulse Resp BP Pulse Ox 98.0 F 78 16 179/75 H 98 08/22/25 11:59 08/22/25 11:59 08/22/25 11:59 08/22/25 11:59 08/22/25 11:59 Laboratory Data at Discharge: WBC 8.00 thou/uL (4.3-10.9) 08/22/25 04:42 Hgb 12.7 g/dL (13.6-17.9) L D 08/22/25 04:42 Hct 38.3 % (39.6-49.0) L 08/22/25 04:42 Plt Count 243 thou/uL (152-406) 08/22/25 04:42 PT 9.6 SECONDS (10-13.0) L 08/21/25 16:24 INR 0.85 08/21/25 16:24 Sodium 136 mEq/L (136-145) 08/22/25 04:42 Potassium 4.5 mEq/L (3.5-5.1) 08/22/25 04:42 BUN 30 mg/dL (7-18) H 08/22/25 04:42 Creatinine 2.38 mg/dL (0.70-1.30) H 08/22/25 04:42 Glucose 124 mg/dL (74-106) H 08/22/25 04:42 Magnesium 2.1 mg/dL (1.6-2.4) 08/21/25 16:24 Total Bilirubin 0.5 mg/dL (0.2-1.0) 08/22/25 04:42 AST 38 U/L (15-37) H 08/22/25 04:42 ALT 43 U/L (16-61) 08/22/25 04:42 Alkaline Phosphatase 65 U/L (45-117) 08/22/25 04:42 <Zita Newton - Last Filed: 08/29/25 00:43> Diet: Lea Activity: Ad velma Time spent managing pt's care (in minutes): 35 <Can Perla - Last Filed: 08/22/25 10:43> <Zita Newton - Last Filed: 08/29/25 00:43> Home Medications: Acetaminophen [Tylenol Extra Strength] 1,000 mg PO BIDP PRN 08/22/25 Amlodipine [Norvasc*] 5 mg PO DAILY 08/22/25 Atorvastatin Calcium [Lipitor] 40 mg PO BEDTIME 08/22/25 Clopidogrel Bisulfate [Plavix*] 75 mg PO DAILY 08/22/25 Dapagliflozin Propanediol [Farxiga] 5 mg PO DAILY 08/22/25 Finasteride [Proscar*] 5 mg PO DAILY 08/22/25 Gabapentin 300 mg PO BEDTIME 08/22/25 Irbesartan 75 mg PO DAILY 08/22/25 Metoprolol Tartrate [Lopressor*] 25 mg PO BID 08/22/25 Tramadol HCl [Ultram] 50 mg PO BID 08/22/25 Physician Discharge Instructions: Patient was admitted to hospital for chest pain. Initial high sensitive troponin was mildly elevated at 65.1, it trended down after this to 57.2 on subsequent rechecks. Patient remained chest pain-free although he did have an episode of burning pain this morning after eating which was resolved with oral Carafate liquid. It is believed that some of the patient's symptoms are likely related to GERD, he was advised to take rkfj-dzy-bnwlhnr Prilosec for 2 at least 2 weeks in addition to dietary changes recommended for GERD as seen in discharge recommendations. Renal function stable, troponin downtrending and patient is feeling much better. He is stable for discharge and outpatient follow-up with his PCP, nephrology and cardiology outpatient. If he has persistent GERD symptoms also recommend follow-up with GI. Followup: Shaw Ortiz DO [ACTIVE - CAN ADMIT] - 1-2 Weeks Wm Marc MD [ACTIVE - CAN ADMIT] - 1-2 Weeks
--- NOTE | 2025-08-22 11:15 | P.CNS ---
Date of Consult: 08/22/25 Chief Complaint: Chest pain History of Present Illness: Patient with PMH of carotid A disease s/p right endarterectomy, presented with epigastric pain that lasted all day yesterday, denies chest pain, no palpitations, no syncope. Allergies No Known Allergies Allergy (Verified 04/26/25 13:36) Home medications list reviewed: Yes Home Medications: Acetaminophen [Tylenol Extra Strength] 1,000 mg PO BIDP PRN 08/22/25 Amlodipine [Norvasc*] 5 mg PO DAILY 08/22/25 Atorvastatin Calcium [Lipitor] 40 mg PO BEDTIME 08/22/25 Clopidogrel Bisulfate [Plavix*] 75 mg PO DAILY 08/22/25 Dapagliflozin Propanediol [Farxiga] 5 mg PO DAILY 08/22/25 Finasteride [Proscar*] 5 mg PO DAILY 08/22/25 Gabapentin 300 mg PO BEDTIME 08/22/25 Irbesartan 75 mg PO DAILY 08/22/25 Metoprolol Tartrate [Lopressor*] 25 mg PO BID 08/22/25 Tramadol HCl [Ultram] 50 mg PO BID 08/22/25 - Past Medical/Surgical History Diabetic: Yes -: CKD 4 (Dr. Ortiz/ M[facility]enna) -: CVA -: Carotid stenosis -: Hypertension -: Hyperlipidemia -: Dtv-ceyvjfq-igwnzhkig diabetes -: Carotid surgery on right carotid Psychosocial/ Personal History: Lives at home with family - Family History Father Medical History: Cancer Notes: Lung and prostate cancer Mother Medical History: Heart disease - Social History Smoking Status: Unknown if ever smoked Alcohol use: Yes CD- Drugs: No Caffeine use: No Place of Residence: Home Review of Systems 10-point ROS is otherwise unremarkable Physical Examination Temp Pulse Resp BP Pulse Ox 98.6 F 81 16 158/71 H 99 08/22/25 08:00 08/22/25 08:00 08/22/25 08:00 08/22/25 08:00 08/22/25 08:00 General: Alert, In no apparent distress HEENT: Atraumatic, PERRLA, Mucous membr. moist/pink, EOMI, Sclerae nonicteric Neck: Supple, 2+ carotid pulse no bruit, No LAD, Without JVD or thyroid abnormality Respiratory: Clear to auscultation bilaterally, Normal air movement Cardiovascular: Regular rate/rhythm, Normal S1 S2 Gastrointestinal: Normal bowel sounds, No tenderness Musculoskeletal: No tenderness Integumentary: No rashes Neurological: Normal gait, Normal speech, Normal tone, Normal affect Lymphatics: No axilla or inguinal lymphadenopathy Laboratory Data (last 24 hrs) 08/21/25 08/21/25 08/21/25 16:24 16:24 16:24 WBC 10.90 Hgb 14.3 Hct 43.2 Plt Count 300 PT 9.6 L INR 0.85 Sodium 134 L Potassium 4.0 BUN 28 H Creatinine 2.38 H Glucose 156 H Magnesium 2.1 Total Bilirubin 0.8 AST 51 H ALT 59 Alkaline Phosphatase 77 - Problems (1) Chest pain Current Visit: Yes Status: Acute Plan: atypical, mild elevated enzymes x1 then trended down to normal, chest pain resolved. continue ASA and Plavix outpatient follow up with cardiology (2) H/O carotid endarterectomy Current Visit: Yes Status: Acute Plan: continue ASA, Plavix and statin (3) HTN (hypertension) Current Visit: Yes Status: Acute Plan: continue home medications.
[2025-08-22 12:00] VITALS: BP 179/75; TEMP 98
== END 2025-08-22 12:22 | disposition home or self-care (01) ==
LOC: ER 16:04 → 2ND 17:26
PROVIDERS: ADMIT Family Medicine; ATTEND Hospitalist
DX: R07.9 Chest pain, unspecified (principal); N18.4 Chronic kidney disease, stage 4 (severe); E78.5 Hyperlipidemia, unspecified; R11.2 Nausea with vomiting, unspecified; E87.1 Hypo-osmolality and hyponatremia; E87.21 Acute metabolic acidosis; E11.22 Type 2 diabetes mellitus with diabetic chronic kidney disease; I12.9 Hypertensive chronic kidney disease with stage 1 through stage 4 chronic kidney disease, or unspecified chronic kidney disease; D63.8 Anemia in other chronic diseases classified elsewhere; D75.89 Other specified diseases of blood and blood-forming organs; Z86.73 Personal history of transient ischemic attack (TIA), and cerebral infarction without residual deficits; Z98.890 Other specified postprocedural states
CPT/HCPCS: 93005; 85025 ×2; 80048; 36415; 83735; 85610; 82947 ×3; 80076; 84484 ×3; 80053; 83880; 71045; 96360; 99285; J1644 ×2; J2470 ×2; J7030 ×2; G0378 ×3

== ENCOUNTER 2025-08-25 19:57 | Emergency (ER) | payer OTHER ==
[2025-08-25] MEDS ORDERED: LORazepam 2 MG/ML VIAL ONE (20:26)
[2025-08-25] MEDS ORDERED: ACETAMINOPHEN 500 MG TAB ONE (20:27)
--- NOTE | 2025-08-25 21:17 | RAD REPORT ---
EXAM: CT brain without contrast HISTORY: TRAUMA COMPARISON: None TECHNIQUE: Multiple contiguous axial images were obtained and a CT of the brain without contrast. Sag ittal and coronal reformats were performed. One or more of the following dose reduction techniques were used: Automated exposure control, adjust ment of the mA and/or kV according to patient size, and/or iterative reconstruction. FINDINGS: No evidence of hydrocephalus, intracranial hemorrhage, or extra-axial fluid collection. Moderate brain atrophy with moderate periventricular and deep white matter chronic microvascular isc hemic changes present. No evidence of midline shift or areas of brain edema. The calvarium is intact. The visualized paranasal sinuses and mastoid air cells are essentially clear . Small right posterior scalp hematoma. Bilateral vertebral atherosclerosis. EXAM: CT of the cervical spine without contrast HISTORY: Neck pain, injury TRAUMA TECHNIQUE: Multiple contiguous axial images were obtained in a CT of the cervical spine without contr ast. Sagittal and coronal reformats were performed. FINDINGS: The vertebral bodies demonstrate normal height and alignment. No evidence of acute fracture or subluxation.. Moderate lower cervical spondylosis. No prevertebral soft tissue swelling is seen. The posterior facets are well aligned. Normal alignment of the skull base with the cervical spine is seen. Bilateral carotid atherosclerosis. The lung apices are unremarkable. COMBINED IMPRESSION: No evidence of acute intracranial abnormality. No evidence of acute osseous abnormality of the cervical spine.
[2025-08-25 21:49] LABS: Anion Gap 13.6 mEq/L (5.0-15.0); BUN Blood Urea Nitrogen 24.0 mg/dL (7-18); Glucose Level 126.0 mg/dL (74-106); Potassium 3.6 mEq/L (3.5-5.1)
[2025-08-25 21:57] LABS: Absolute Lymphocytes (CBC) 0.7 K/uL (0.7-4.9); Hematocrit 37.5 % (39.6-49.0); Hemoglobin 12.7 g/dL (13.6-17.9); MCH 34.5 pg (27.0-35.0); MCHC 33.8 g/dL (32.0-36.0); MCV 102.0 fL (80-100); MPV 8.4 fL (7.6-11.3); Nucleated RBC Absolute Count 0.0 (0-0); Nucleated Red Blood Cells % 0.0 % (0-0); RBC Red Blood Cell Count 3.68 M/uL (4.33-5.43); White Blood Count 7.00 thou/uL (4.3-10.9)
--- NOTE | 2025-08-25 22:56 | ER ---
Nurse's Notes [facility] Name: Boris Najera Age: 70 yrs Sex: Male : 1955 Arrival Date: 08/25/2025 Time: 19:57 Bed 3 Private MD: Diagnosis: Contusion of unspecified part of head, initial encounter Presentation: 08/25 20:12 Chief complaint: Patient states: pt fell backwards at home "lost balance trying to kb4 reach in my back pocket for [place]", fell on R arm, hit back of head on concrete, denies loss of conciousness, reports use of alcohol today and blood thinners, denies history of HTN current bp (210/70). Coronavirus screen: At this time, the client does not indicate any symptoms associated with coronavirus-19. Ebola Screen: No symptoms or risks identified at this time. Initial Sepsis Screen: Does the patient meet any 2 criteria? No. Patient's initial sepsis screen is negative. Does the patient have a suspected source of infection? No. Patient's initial sepsis screen is negative. Risk Assessment: Do you want to hurt yourself or someone else? Patient reports no desire to harm self or others. Onset of symptoms was August 25, 2025. 20:12 Method Of Arrival: EMS: [facility] kb4 20:12 Acuity: LEWIS 2 kb4 Triage Assessment: 20:18 General: Appears in no apparent distress. comfortable, Behavior is calm, cooperative. kb4 Pain: Complains of pain in right arm. Historical: - Home Meds: 20:18 clopidogrel oral daily [Active]; amlodipine oral [Active]; kb4 - PMHx: 20:18 Cerebrovascular accident; diabetes mellitus; Hypercholesterolemia; Hypertensive kb4 disorder; - PSHx: 20:18 Carotid Surgery; Skin grafting; kb4 - Immunization history:: Adult Immunizations up to date. - Infectious Disease History:: Denies. - Social history:: Smoking status: Patient reports use of chewing tobacco. Patient uses alcohol, on a daily basis. LAST DRINK TODAY, WHISKEY . Screenin:00 [facility] ED Fall Risk Assessment (Adult) History of falling in the last 3 months, kb4 including since admission No falls in past 3 months (0 pts) Confusion or Disorientation No (0 pts) Intoxicated or Sedated No (0 pts) Impaired Gait No (0 pts) Mobility Assist Device Used No (0 pt) Altered Elimination No (0 pt) Score/Fall Risk Level 0 - 2 = Low Risk. Abuse screen: Denies threats or abuse. Denies injuries from another. 23:00 Nutritional screening: No deficits noted. Tuberculosis screening: No symptoms or risk kb4 factors identified. Assessment: 20:30 General: Appears in no apparent distress. comfortable, Behavior is calm, cooperative. kb4 Neuro: Level of Consciousness is awake, alert, obeys commands. 20:30 Cardiovascular: Patient's skin is warm and dry. Respiratory: Airway is patent kb4 Respiratory effort is even, unlabored, Respiratory pattern is regular, symmetrical. GI: Abdomen is flat, round. : No deficits noted. EENT: No deficits noted. Derm: No deficits noted. Musculoskeletal: No deficits noted. 21:20 Reassessment: Patient appears in no apparent distress at this time. No changes from kb4 previously documented assessment. Patient denies pain at this time. 22:44 Reassessment: No changes from previously documented assessment. Patient and/or family kb4 updated on plan of care and expected duration. Pain level reassessed. Patient is alert, oriented x 3, equal unlabored respirations, skin warm/dry/pink. 23:30 Reassessment:. Reassessment: cleaned head hematoma with saline and applied a non kb4 adherent dressing and wrapped with curlex. 23:30 Neuro: Level of Consciousness is awake, alert, obeys commands. kb4 Vital Signs: 20:12 BP 210 / 70; Pulse 77; Resp 18; Temp 98.6; Pulse Ox 100% ; Weight 79.83 kg; Height 5 kb4 ft. 10 in. ; Pain 5/10; 21:20 BP 192 / 52; Pulse 75; Resp 18; Pulse Ox 100% on R/A; kb4 22:45 BP 164 / 45; Pulse 68; Resp 18; Pulse Ox 100% ; kb4 23:43 BP 188 / 52; Pulse 69; Resp 18; Pulse Ox 100% on R/A; kb4 20:12 Body Mass Index 25.25 (79.83 kg, 177.8 cm) kb4 20:12 Pain Scale: Adult kb4 NIH Stroke Scale Scores: 23:00 NIHSS Score: 0 kb4 ED Course: 20:01 Patient arrived in ED. rv1 20:03 Tarleton, Peterson, DO is Attending Physician. tt7 20:12 Olga Lidia Andrews, EMILEE is Primary Nurse. kb4 20:18 Triage completed. kb4 20:18 Arm band placed on left wrist. kb4 20:45 CT Head C Spine In Process Unspecified. EDMS 21:21 Inserted saline lock: 20 gauge in left forearm, using aseptic technique. Blood kb4 collected. Flushed with 10 mL NS. 23:00 Patient has correct armband on for positive identification. Provided Education on: fall kb4 prevention . 23:00 No provider procedures requiring assistance completed. IV discontinued, intact, kb4 bleeding controlled, No redness/swelling at site. Pressure dressing applied. Administered Medications: 20:30 Drug: Ativan IVP 0.5 mg IVP once Route: IVP; Site: left antecubital; kb4 21:17 Follow up: Response: No adverse reaction kb4 20:30 Drug: Acetaminophen PO 1000 mg PO once Route: PO; kb4 21:16 Follow up: Response: No adverse reaction kb4 Medication: 23:42 VIS not applicable for this client. kb4 Outcome: 22:55 Discharge ordered by MD. tt7 23:00 Discharged to home via wheelchair, kb4 23:00 Condition: good 23:00 Discharge instructions given to patient, Instructed on discharge instructions, follow up and referral plans. Demonstrated understanding of instructions, follow-up care, 23:42 Patient left the ED. kb4 NIH Stroke Scale - NIH Stroke Score Date: 08/25/2025 Time: 23:00 Total Score = 0 10. Dysarthria (speech clarity - read or repeat words) - 0(Normal) 11. Extinction and Inattention (visual/tactile/auditory/spatial/personal) - 0(No abnormality) 1a. Level of Consciousness (LOC) - 0(Alert) 1b. Level of Consciousness (LOC) (Month \\T\\ Age) - 0(Both) 1c. LOC Commands (Open \\T\\ Closes Eyes/Nephrology Nurse) - 0(Both) 2. Best Gaze (Lateral Gaze Paresis) - 0(Normal) 3. Visual Field Loss - 0(No visual loss) 4. Facial Palsy - 0(Normal) 5a. Left Arm: Motor (10-second hold) - 0(No drift) 5b. Right Arm: Motor (10-second hold) - 0(No drift) 6a. Left Leg: Motor (5-second hold - always test supine) - 0(No drift) 6b. Right Leg: Motor (5-second hold - always test supine) - 0(No drift) 7. Limb Ataxia (finger/nose \\T\\ heel/williamson - test with eyes open) - 0(Absent) 8. Sensory Loss (pinprick arms/legs/face) - 0(Normal) 9. Best Language: Aphasia (description/naming/reading) - 0(No aphasia) Initials: kb4 Signatures: Dispatcher [employer] Kaya Marie rv1 Olga Lidia Andrews, RN RN kb4 Peterson Gamez DO DO tt7
--- NOTE | 2025-08-25 22:56 | EDPHYS ---
Physician Documentation [facility] Name: Boris Najera Age: 70 yrs Sex: Male : 1955 Arrival Date: 08/25/2025 Time: 19:57 Bed 3 Private MD: ED Physician Peterson Gamez HPI: 08/26 06:59 This 70 yrs old Male presents to ER via EMS with complaints of Fall Injury. tt7 07:00 Patient reports that he fell backwards he is he was drinking alcohol and lost his tt7 balance while reaching in his back pocket for a can of [employer] long [employer], he fell onto his bottom and hit the back of his head on concrete, did not have loss of consciousness, no nausea or vomiting, he does report daily clopidogrel use, he has no other complaints. Historical: - Home Meds: 08/25 20:18 clopidogrel oral daily [Active]; amlodipine oral [Active]; kb4 - PMHx: 20:18 Cerebrovascular accident; diabetes mellitus; Hypercholesterolemia; Hypertensive kb4 disorder; - PSHx: 20:18 Carotid Surgery; Skin grafting; kb4 - Immunization history:: Adult Immunizations up to date. - Infectious Disease History:: Denies. - Social history:: Smoking status: Patient reports use of chewing tobacco. Patient uses alcohol, on a daily basis. LAST DRINK TODAY, WHISKEY . ROS: 08/26 07:00 Constitutional: negative for fever. Cardiovascular: negative for chest pain. tt7 Respiratory: negative for shortness of breath. Abdomen/GI: negative for abdominal pain, nausea, vomiting, diarrhea. MS/Extremity: negative for injury and deformity. Skin: negative for rash. Neuro: negative for focal weakness. Exam: 07:00 Constitutional: vital signs reviewed, well appearing. Head/Face: normocephalic, small tt7 sized hematoma to the posterior scalp, no palpable skull fracture, no Moore sign or raccoon eyes Eyes: no conjunctival injection, anicteric sclerae. ENT: mucus membranes moist. Neck: trachea midline, no JVD, no meningismus, no cervical spine step-off/deformity/point tenderness. Chest/axilla: normal chest wall appearance and motion, nontender, no crepitus. Cardiovascular: regular rate and rhythm, no murmurs, no rubs, no lower extremity edema. Respiratory: normal respiratory effort, no accessory muscle use, lungs CTAB. Abdomen/GI: soft, nondistended, nontender, no guarding or rebound, negative Ravi's sign, no McBurney point tenderness. Back: normal ROM. Skin: warm, dry, normal turgor, normal color, no rash. MS/ Extremity: normal ROM of extremities, no gross deformities. Neuro: alert and oriented with appropriate mental status, normal speech, follows commands, no focal neurologic deficits. Psych: appropriate mood and affect. Vital Signs: 08/25 20:12 BP 210 / 70; Pulse 77; Resp 18; Temp 98.6; Pulse Ox 100% ; Weight 79.83 kg; Height 5 kb4 ft. 10 in. ; Pain 5/10; 21:20 BP 192 / 52; Pulse 75; Resp 18; Pulse Ox 100% on R/A; kb4 22:45 BP 164 / 45; Pulse 68; Resp 18; Pulse Ox 100% ; kb4 23:43 BP 188 / 52; Pulse 69; Resp 18; Pulse Ox 100% on R/A; kb4 20:12 Body Mass Index 25.25 (79.83 kg, 177.8 cm) kb4 20:12 Pain Scale: Adult kb4 NIH Stroke Scale Scores: 23:00 NIHSS Score: 0 kb4 MDM: 20:03 Medical Screening Exam initiated tt7 08/26 07:02 Differential diagnosis: closed head injury, contusion, fracture, Intracranial tt7 hemorrhage. Data reviewed: vital signs, nurses notes, lab test result(s), radiologic studies. ED course: 70-year-old male with fall and head injury, no LOC, on antiplatelet therapy, physical exam is reassuring, there is a posterior scalp hematoma but no palpable fracture, basic laboratory studies and CT imaging of the head and cervical spine ordered, patient given analgesic medication, laboratory studies are overall reassuring with no acute findings requiring further evaluation, CT imaging of the head and cervical spine are negative for acute traumatic injuries, patient's tetanus is up-to-date, after completion of the patient's emergency department evaluation, I do not suspect a life-threatening or disabling process. Patient is medically stable and not in need of emergent medical intervention. I had a detailed discussion with the patient regarding the historical points, exam findings, emergency department evaluation, diagnostic results, and the discharge diagnosis. I instructed the patient on outpatient management of their condition. I discussed the need for outpatient follow-up with a primary care physician. I informed the patient on return precautions, including the need to return to the ED if symptoms do not improve, worsen, or if there are any questions or concerns that arise at home. The patient was discharged in stable condition. 08/25 20:15 Order name: Basic Metabolic Panel; Complete Time: 21:51 tt7 08/25 20:15 Order name: CBC with Diff; Complete Time: 22:32 tt7 08/25 20:15 Order name: Type And Screen; Complete Time: 22:32 tt7 08/25 20:15 Order name: CT Head C Spine; Complete Time: 21:30 tt7 08/25 20:15 Order name: Labs collected and sent; Complete Time: 20:21 tt7 Administered Medications: 08/25 20:30 Drug: Ativan IVP 0.5 mg IVP once Route: IVP; Site: left antecubital; kb4 21:17 Follow up: Response: No adverse reaction kb4 20:30 Drug: Acetaminophen PO 1000 mg PO once Route: PO; kb4 21:16 Follow up: Response: No adverse reaction kb4 Disposition: 08/26 07:04 Co-signature as Attending Physician, Peterson Gamez DO. tt7 Disposition Summary: 08/25/25 22:55 Discharge Ordered Notes: Location: Home tt7 Problem: new tt7 Symptoms: have improved tt7 Condition: Stable tt7 Diagnosis - Contusion of unspecified part of head, initial encounter tt7 Followup: tt7 - With: Emergency Department - When: As needed - Reason: Followup: tt7 - With: Private Physician - When: 1 - 2 days - Reason: Recheck today's complaints, Re-evaluation by your physician Discharge Instructions: - Discharge Summary Sheet tt7 - Hematoma, [id number] tt7 Forms: - Medication Reconciliation Form tt7 - Antibiotic Education tt7 - Prescription Opioid Use tt7 - Patient Portal Instructions tt7 - Leadership Thank You Letter tt7 NIH Stroke Scale - NIH Stroke Score Date: 08/25/2025 Time: 23:00 Total Score = 0 10. Dysarthria (speech clarity - read or repeat words) - 0(Normal) 11. Extinction and Inattention (visual/tactile/auditory/spatial/personal) - 0(No abnormality) 1a. Level of Consciousness (LOC) - 0(Alert) 1b. Level of Consciousness (LOC) (Month \T\ Age) - 0(Both) 1c. LOC Commands (Open \T\ Closes Eyes/Furniture Fabricator) - 0(Both) 2. Best Gaze (Lateral Gaze Paresis) - 0(Normal) 3. Visual Field Loss - 0(No visual loss) 4. Facial Palsy - 0(Normal) 5a. Left Arm: Motor (10-second hold) - 0(No drift) 5b. Right Arm: Motor (10-second hold) - 0(No drift) 6a. Left Leg: Motor (5-second hold - always test supine) - 0(No drift) 6b. Right Leg: Motor (5-second hold - always test supine) - 0(No drift) 7. Limb Ataxia (finger/nose \T\ heel/williamson - test with eyes open) - 0(Absent) 8. Sensory Loss (pinprick arms/legs/face) - 0(Normal) 9. Best Language: Aphasia (description/naming/reading) - 0(No aphasia) Initials: kb4 Signatures: Dispatcher [employer] Olga Lidia Wilson, RN RN kb4 Peterson Gamez, DO tt7
[2025-08-26 00:23] VITALS: TEMP 98.6; O2SAT 100
[2025-08-26 00:25] VITALS: BP 164/45
== END 2025-08-25 23:42 | disposition home or self-care (01) ==
LOC: ER 19:57
DX: S00.83XA Contusion of other part of head, initial encounter (principal); F17.220 Nicotine dependence, chewing tobacco, uncomplicated
CPT/HCPCS: 36415; 70450; 72125; 80048; 85025; 86850; 86900; 86901; 96374; 99285

== ENCOUNTER 2025-09-01 23:22 | Emergency (ER) | payer OTHER ==
[2025-09-02 00:09] LABS: Absolute Lymphocytes (CBC) 1.0 K/uL (0.7-4.9); Hematocrit 34.3 % (39.6-49.0); Hemoglobin 11.7 g/dL (13.6-17.9); MCH 35.1 pg (27.0-35.0); MCHC 34.3 g/dL (32.0-36.0); MCV 102.5 fL (80-100); MPV 7.8 fL (7.6-11.3); Nucleated RBC Absolute Count 0.0 (0-0); Nucleated Red Blood Cells % 0.0 % (0-0); RBC Red Blood Cell Count 3.34 M/uL (4.33-5.43); White Blood Count 6.00 thou/uL (4.3-10.9)
[2025-09-02 00:18] LABS: Anion Gap 17.4 mEq/L (5.0-15.0); BUN Blood Urea Nitrogen 22.0 mg/dL (7-18); Glucose Level 183.0 mg/dL (74-106); Potassium 3.4 mEq/L (3.5-5.1)
--- NOTE | 2025-09-02 00:49 | ER ---
Nurse's Notes [facility] Name: Boris Najera Age: 70 yrs Sex: Male : 1955 Arrival Date: 09/01/2025 Time: 23:22 Bed 2 Private MD: Diagnosis: Traumatic subdural hemorrhage Presentation: 09/01 23:48 Chief complaint: Patient states: Pt to ED via EMS from home. Pt recently had ankle mf3 surgery and fell at home. pt presents with head laceration, bleeding controlled and left hand tear. Care prior to arrival: None. head wrapped in curlex. Mechanism of Injury: Fall from standing position. an unknown distance. Trauma event details: Injury occurred: at home. 23:48 Acuity: LEWIS 2 mf3 23:48 Method Of Arrival: EMS: [facility] 3 09/02 02:20 Coronavirus screen: At this time, the client does not indicate any symptoms associated bm8 with coronavirus-19. Ebola Screen: No symptoms or risks identified at this time. Initial Sepsis Screen: Does the patient meet any 2 criteria? No. Patient's initial sepsis screen is negative. Does the patient have a suspected source of infection? No. Patient's initial sepsis screen is negative. Risk Assessment: Do you want to hurt yourself or someone else?. Onset of symptoms was September 02, 2025. Historical: - Allergies: 02:21 No Known Allergies; bm8 - Infectious Disease History:: Denies. - Social history:: Smoking status: Patient denies any tobacco usage or history of. Screenin/09 23:30 Abuse screen: Denies threats or abuse. Denies injuries from another. Tuberculosis mf3 screening: No symptoms or risk factors identified. Never had TB. 23:40 [facility] ED Fall Risk Assessment (Adult) History of falling in the last 3 months, bm8 including since admission No falls in past 3 months (0 pts) Confusion or Disorientation No (0 pts) Intoxicated or Sedated No (0 pts) Impaired Gait No (0 pts) Mobility Assist Device Used No (0 pt) Altered Elimination No (0 pt) Score/Fall Risk Level 0 - 2 = Low Risk Oriented to surroundings. 23:40 Nutritional screening: No deficits noted. bm8 Primary Survey: 23:30 NO uncontrolled hemorrhage observed. Breathing/Chest: Spontaneous respiratory effort, mf3 equal unlabored respirations, breath sounds clear bilaterally, regular pattern, symmetrical chest rise and fall. Respiratory effort: spontaneous, Breath sounds: clear, bilaterally. Respiratory pattern: regular, Chest inspection: symmetrical rise and fall of the chest. Circulation: No external hemorrhage present. Regular and strong central pulse, skin warm/dry/normal color. Skin color: pink. Disability Pupils are equal, round, reactive to light and accommodation. Client is alert. Exposure/Environment: Obvious injury(ies) are noted at this time: left laceration on head. Reassessment Breathing: Spontaneous respiratory effort, equal unlabored respirations, breath sounds clear bilaterally, regular pattern with symmetrical chest rise and fall. Respiratory effort Spontaneous Unlabored Circulation: No external hemorrhage noted. Regular and strong central pulse, skin warm/dry/normal color. Disability:. Secondary Survey: 23:30 HEENT: Head Other laceration Face No injury/deformity Eyes: No injury or deformity mf3 noted. Ears: clear Nose: clear Throat: No injury or deformity noted. Gastrointestinal: No deficits noted. Abdomen is soft, Bowel sounds present in all quadrants. : No signs and/or symptoms were reported regarding the genitourinary system. Musculoskeletal: Circulation, motion, and sensation intact. Capillary refill < 3 seconds, Range of motion: intact in all extremities. Assessment: 23:47 General: Appears. mf3 23:48 General: Behavior is calm, cooperative, appropriate for age. Pain: Complains of pain in mf3 scalp Pain currently is 7 out of 10 on a pain scale. Neuro: Level of Consciousness is awake, alert, obeys commands, Oriented to person, place, time, Brewery Pumper are equal bilaterally Full function. EENT:. Cardiovascular: Capillary refill < 3 seconds. Respiratory: Airway is patent Trachea midline Respiratory effort is even, unlabored. GI: Abdomen is flat. : No signs and/or symptoms were reported regarding the genitourinary system. Derm: Skin is intact, is healthy with good turgor, Skin is pink, warm \T\ dry. Musculoskeletal: Circulation, motion, and sensation intact. Capillary refill < 3 seconds. Injury Description: Head injury sustained to scalp bleeding, bleeding controlled. 23:48 Reassessment: CHECK TRAUMA TRIAGE. cc6 09/02 01:21 Reassessment: Patient and/or family updated on plan of care and expected duration. Pain cc6 level reassessed. Patient is alert, oriented x 3, equal unlabored respirations, skin warm/dry/pink. Patient states feeling better. Patient states symptoms have improved. Vital Signs: 09/01 23:30 BP 116 / 40; Pulse 79; Resp 18; Temp 98.1; Pulse Ox 100% on R/A; Weight 84.4 kg; Height mf3 5 ft. 6 in. ; Pain 7; 09/02 01:22 BP 160 / 89; Pulse 77; Resp 14; Temp 98.1; Pulse Ox 100% on R/A; cc6 02:00 BP 169 / 61; Pulse 76; Resp 15; Pulse Ox 100% on R/A; bm8 09/01 23:30 Body Mass Index 30.03 (84.40 kg, 167.64 cm) mf3 09/01 23:30 Pain Scale: Adult mf3 [place] Coma Score: 09/01 23:30 Eye Response: spontaneous(4). Motor Response: obeys commands(6). Verbal Response: mf3 oriented(5). Total: 15. 09/02 01:22 Eye Response: spontaneous(4). Motor Response: obeys commands(6). Verbal Response: cc6 oriented(5). Total: 15. Trauma Score (Adult): 09/01 23:30 Eye Response: spontaneous(1); Verbal Response: oriented(1); Motor Response: obeys mf3 commands(2); Systolic BP: > 89 mm Hg(4); Respiratory Rate: 10 to 29 per min(4); Vinny Score: 15; Trauma Score: 12 ED Course: 23:27 Patient arrived in ED. tt7 23:27 Peterson Gamez DO is Attending Physician. tt7 23:30 Patient has correct armband on for positive identification. Bed in low position. Call 3 light in reach. Side rails up X2. 23:30 Arm band placed on. bm8 23:30 Patient maintains SpO2 saturation greater than 95% on room air. mf3 23:30 Inserted saline lock: 18 gauge in right antecubital area, using aseptic technique. cc6 23:47 Nadine Gramajo, RN is Primary Nurse. mf3 23:53 Triage completed. 3 09/02 00:01 Assist provider with laceration repair on back of head that was between 2.6 to 7.5 cm bm8 using zofia. Set up tray. Performed by Peterson Gamez DO Dressed with 4X4s, Kerlix, Patient tolerated well. Inserted saline lock: 18 gauge in right antecubital area, using aseptic technique. Blood collected. Flushed with 10 mL NS. 00:03 CT Head C Spine Sent. cc6 00:12 CT Head C Spine In Process Unspecified. EDMS 00:49 initiated with [facility]. vk 02:22 Provided Education on: pt educated on transfer. bm8 02:22 Patient transferred, IV remains in place. intact, bleeding controlled, No bm8 redness/swelling at site. Pressure dressing applied. 04:54 Patient was accepted to [facility] ER to Dr. Alexander \T\104 accepting admin Will martins \T\104 [place] called for transport. Administered Medications: 01:20 Drug: NS 0.9% IV 1000 ml IV at 1000 ml once; to be given as a bolus over 60 minutes cc6 Route: IV; Rate: 1000 ml; Site: right antecubital; 02:19 Follow up: Response: No adverse reaction; IV Status: Completed infusion bm8 01:20 Drug: Keppra IV 2000 mg IV at bolus once Route: IV; Rate: bolus; Site: right cc6 antecubital; 02:19 Follow up: Response: No adverse reaction bm8 02:26 Follow up: Response: No adverse reaction bm8 Medication: 02:23 VIS not applicable for this client. bm8 02:23 Vaccine Information Statement (VIS) provided today. Questions and/or concerns bm8 addressed. VIS edition date: September 02, 2025. Outcome: 00:49 ER care complete, transfer ordered by . tt7 02:24 Transferred by ground EMS to [facility], bm8 02:24 Condition: good 02:24 Discharge instructions given to patient, Instructed on the need for transfer, Demonstrated understanding of follow-up care, 02:26 Patient left the ED. bm8 Signatures: Dispatcher [employer] Tara Cabral Brad RN RN bm8 Amber Campbell RN RN cc6 Nadine Gramajo RN RN mf3 Peterson Gamez DO DO tt7 Corrections: (The following items were deleted from the chart) 02:21 02:21 PMHx: Hypertensive disorder; bm8 bm8 02: 02:21 PMHx: diabetes mellitus; bm8 bm8 02: PMHx: Cerebrovascular accident; bm8 bm8 : 02: PMHx: Hypercholesterolemia; bm8 bm8 : 02:21 PSHx: Carotid Surgery; bm8 bm8 : 02: PSHx: Skin grafting; bm8 bm8
--- NOTE | 2025-09-02 00:50 | EDPHYS ---
Physician Documentation [facility] Name: Boris Najera Age: 70 yrs Sex: Male : 1955 Arrival Date: 09/01/2025 Time: 23:22 Bed 2 Private MD: ED Physician Peterson Gamez HPI: 09/02 05:38 This 70 yrs old Male presents to ER via EMS with complaints of Head Injury Without tt7 LOC-Adult. 05:38 Patient reports that he was drinking alcohol when he stumbled over his feet and fell tt7 hitting the left side of his head, he denies loss of consciousness, he reports chronic use of clopidogrel. Currently his only complaint is head pain at the site of a small laceration. No other complaints. Historical: - Allergies: 02:21 No Known Allergies; bm8 - Infectious Disease History:: Denies. - Social history:: Smoking status: Patient denies any tobacco usage or history of. ROS: 05:39 Constitutional: negative for fever. Cardiovascular: negative for chest pain. tt7 Respiratory: negative for shortness of breath. Abdomen/GI: negative for abdominal pain, nausea, vomiting, diarrhea. MS/Extremity: negative for injury and deformity. Skin: negative for rash. Neuro: negative for focal weakness. Exam: 05:39 Constitutional: vital signs reviewed, well appearing. Head/Face: normocephalic, no tt7 palpable skull fracture, no Moore sign or raccoon eyes, 3 cm linear laceration to the left parietal scalp with small amount of bleeding Eyes: no conjunctival injection, anicteric sclerae. ENT: mucus membranes moist. Neck: trachea midline, no JVD, no meningismus. Chest/axilla: normal chest wall appearance and motion, nontender, no crepitus. Cardiovascular: regular rate and rhythm, no murmurs, no rubs, no lower extremity edema. Respiratory: normal respiratory effort, no accessory muscle use, lungs CTAB. Abdomen/GI: soft, nondistended, nontender, no guarding or rebound, negative Ravi's sign, no McBurney point tenderness. Back: normal ROM. Skin: warm, dry, intact, normal turgor, normal color, no rash. MS/ Extremity: normal ROM of extremities, no gross deformities. Neuro: alert and oriented with appropriate mental status, normal speech, follows commands, no focal neurologic deficits. Psych: appropriate mood and affect. Vital Signs: 09/01 23:30 BP 116 / 40; Pulse 79; Resp 18; Temp 98.1; Pulse Ox 100% on R/A; Weight 84.4 kg; Height mf3 5 ft. 6 in. ; Pain 06/02; 09/02 01:22 BP 160 / 89; Pulse 77; Resp 14; Temp 98.1; Pulse Ox 100% on R/A; cc6 02:00 BP 169 / 61; Pulse 76; Resp 15; Pulse Ox 100% on R/A; bm8 09/01 23:30 Body Mass Index 30.03 (84.40 kg, 167.64 cm) mf3 09/01 23:30 Pain Scale: Adult mf3 [place] Coma Score: 09/01 23:30 Eye Response: spontaneous(4). Motor Response: obeys commands(6). Verbal Response: mf3 oriented(5). Total: 15. 09/02 01:22 Eye Response: spontaneous(4). Motor Response: obeys commands(6). Verbal Response: cc6 oriented(5). Total: 15. Trauma Score (Adult): 09/01 23:30 Eye Response: spontaneous(1); Verbal Response: oriented(1); Motor Response: obeys mf3 commands(2); Systolic BP: > 89 mm Hg(4); Respiratory Rate: 10 to 29 per min(4); Vinny Score: 15; Trauma Score: 12 Laceration: 09/02 05:40 Wound Repair of 3cm ( 1.2in ) subcutaneous laceration to scalp. Linear shaped.. Minimal tt7 bleeding noted.. Neuro:. Vascular:. Tendon:. Anesthesia: Wound infiltrated with 4 mls of 2% lidocaine with epi. Wound prep: Simple cleansing. Skin closed with 3 Jeny using staple gun. Patient tolerated well. MDM: 09/01 23:27 Medical Screening Exam initiated tt7 09/02 00:57 Differential diagnosis: Contusion of Hematoma on Laceration of Intracranial bleed- tt7 Concussion cerebral contusion. Data reviewed: vital signs, nurses notes, old medical records, lab test result(s), radiologic studies. ED course: I independently interpreted the patient's CT imaging of the head without contrast, on my interpretation there is a small size right occipital parietal subdural hematoma. 01:01 ED course: I will load the patient with Keppra for seizure prophylaxis and transfer the tt7 patient to trauma facility with on-call neurosurgery, currently the patient has a GCS of 15 and stable vital signs. 05:43 Counseling: I had a detailed discussion with the patient and/or guardian regarding the tt7 historical points, exam findings, and any diagnostic results supporting the discharge/admit diagnosis, lab results, radiology results, the need to transfer to another facility. ED course: This patient has a medical condition that impairs one or more vital organ systems and has a high probability of imminent or life threatening deterioration in their condition. Management of this patient required my highest level of care and included frequent personal assessment and intervention. I personally spent 35 minutes of critical care time, exclusive of time spent on separately billable procedures, in the evaluation and management of this patient's condition. This critical care time included independently obtaining a history, examining the patient, pulse oximetry, cardiac telemetry monitoring, ordering and review of studies laboratory and imaging studies, development of a management plan, evaluation of patient's response to treatment, frequent reassessment, and discussion with other healthcare providers. 09/01 23:27 Order name: Basic Metabolic Panel; Complete Time: 00:37 tt7 09/01 23:27 Order name: CBC with Diff; Complete Time: 00:37 tt7 09/02 00:51 Order name: Ptt, Activated; Complete Time: 05:45 tt7 09/02 00:51 Order name: PT-INR; Complete Time: 05:45 tt7 09/01 23:27 Order name: CT Head C Spine tt7 09/01 23:27 Order name: Labs collected and sent; Complete Time: 00:03 tt7 Administered Medications: 01:20 Drug: NS 0.9% IV 1000 ml IV at 1000 ml once; to be given as a bolus over 60 minutes cc6 Route: IV; Rate: 1000 ml; Site: right antecubital; 02:19 Follow up: Response: No adverse reaction; IV Status: Completed infusion bm8 01:20 Drug: Keppra IV 2000 mg IV at bolus once Route: IV; Rate: bolus; Site: right cc6 antecubital; 02:19 Follow up: Response: No adverse reaction bm8 02:26 Follow up: Response: No adverse reaction bm8 Disposition: 05:45 Co-signature as Attending Physician, Peterson Gamez DO. tt7 Disposition Summary: 09/02/25 00:49 Transfer Ordered Notes: Transfer Location: [facility] tt7 Reason: Higher level of care tt7 Condition: Serious tt7 Problem: new tt7 Symptoms: are unchanged tt7 Accepting Physician: (09/02/25 02:26) bm8 Diagnosis - Traumatic subdural hemorrhage tt7 Forms: - Medication Reconciliation Form tt7 - SBAR form tt7 Signatures: Dispatcher [employer] EDMS Damian Stewart, RN RN bm8 Amber Campbell, RN RN cc6 Nadine Gramajo RN RN mf3 Peterson Gamez DO DO tt7 Corrections: (The following items were deleted from the chart) 00:51 00:51 PTT, ACTIVATED+COAG.LAB.BRZ ordered. EDMS EDMS 00:51 00:51 PROTIME (+INR)+COAG.LAB.BRZ ordered. EDMS EDMS 01:02 00:57 ED course: I independently interpreted the patient's CT imaging of the head tt7 without contrast, on my interpretation there is a small size occipital parietal subdural hematoma. tt7 02:21 02:21 PMHx: Hypertensive disorder; bm8 bm8 02:21 02:21 PMHx: diabetes mellitus; bm8 bm8 02:21 02:21 PMHx: Cerebrovascular accident; bm8 bm8 02:21 02:21 PMHx: Hypercholesterolemia; bm8 bm8 02:21 02:21 PSHx: Carotid Surgery; bm8 bm8 02:21 02:21 PSHx: Skin grafting; bm8 bm8 02:26 00:49 tt7 bm8
--- NOTE | 2025-09-02 00:54 | RAD REPORT ---
EXAM: CT Head and Cervical Spine Without Intravenous Contrast FACILITY: [facility] CLINICAL HISTORY: 70 years, Male; TRAUMA TECHNIQUE: Axial computed tomography images of the head/brain and cervical spine without intravenous contrast. Sagittal and coronal reformatted images were created and reviewed. This CT exam was performed using one or more of the following dose reduction techniques: automated exposure control, adjustmen t of the mA and/or kV according to patient size, and/or use of iterative reconstruction technique. COMPARISON: August 25, 2025 CT head angiogram FINDINGS: Brain: Right parieto-occipital subdural hemorrhage. Multilevel endplate osteophyte formation. No significant white matter disease. Ventricles: Unremarkable. No ventriculomegaly. Skull: No acute fracture. Sinuses: Unremarkable as visualized. No acute sinusitis. Mastoid air cells: Unremarkable as visualized. No mastoid effusion. Vertebrae: Multilevel disc osteophyte complex. Discs/spinal canal/neural foramina: No acute findings. No spinal canal stenosis. Soft tissues: Unremarkable. IMPRESSION: 1. Right parieto-occipital subdural hemorrhage. 2. No acute spine fracture or subluxation. Dr. Peterson Gamez was notified with results at 12:45 AM on 09/02/2025 Electronically signed by: Abdiaziz Howard MD 09/02/2025 12:47 AM CDT RP H Due to temporary technical issues with the PACS/Play4test reporting system, reports are being bertram d by the in-house radiologist without review as a courtesy to ensure prompt reporting the interpreting radiologist is fully responsible for the content of the report. Transcribed Date/Time: 09/02/2025 12:54 AM
[2025-09-02] MEDS ORDERED: NA CHLORIDE 0.9% 1,000 ML ONE (01:08)
[2025-09-02] MEDS ORDERED: LEVETIRACETAM 500 MG/5 ML VIAL IV ONE (01:08)
[2025-09-02] MEDS ORDERED: NA CHLORIDE 0.9% 100 ML ONE (01:10)
[2025-09-02 01:21] LABS: PT Prothrombin Time 10.2 SECONDS (10-13.0); Protime INR 0.9
[2025-09-02 01:22] LABS: PTT, Activated Partial Thromb 30.6 SECONDS (27.2-37.4)
[2025-09-02 02:31] VITALS: TEMP 98.1; O2SAT 100
[2025-09-02 02:32] VITALS: BP 160/89
== END 2025-09-02 02:26 | disposition short-term general hospital (02) ==
LOC: ER 23:22
DX: S06.5X0A Traumatic subdural hemorrhage without loss of consciousness, initial encounter (principal); S01.01XA Laceration without foreign body of scalp, initial encounter; W18.30XA Fall on same level, unspecified, initial encounter
CPT/HCPCS: 96361; 85025; 80048; 36415; 85610; 85730; 70450; 72125; 96374; 99285; 12002; J1953; J7030